=== PATIENT | male | born 1975 | race Caucasian/White ===

== ENCOUNTER 2024-02-25 16:16 | Emergency (ER) | payer OTHER, SELFPAY ==
--- NOTE | 2024-02-25 16:26 | ED.URI ---
HPI - URI/Sore Throat General Chief Complaint: Upper Respiratory Infection Stated Complaint: + COVID Time Seen by Provider: 02/25/24 16:34 Source: patient, RN notes reviewed and old records reviewed Mode of arrival: ambulatory Limitations: no limitations History of Present Illness HPI Narrative: Patient presents with complaints of body aches and runny nose that he began to notice yesterday. Tested positive for COVID-19 this morning. He is concerned about need for [place] [facility]. He is immunocompromised due to treatment for ulcerative colitis. He denies any shortness of breath, denies any fever. Related Data Home Medications Medication Instructions Recorded Confirmed adalimumab-atto 40 mg/0.8 mL 40 mg subcut DIRECTED 02/25/24 02/25/24 subcutaneous auto-injector (Amjevita(CF) Autoinjector) fluoxetine 10 mg capsule 10 mg DIRECTED 02/25/24 02/25/24 tramadol 50 mg tablet 50 mg DIRECTED 02/25/24 02/25/24 Allergies Allergy/AdvReac Type Severity Reaction Status Date / Time acetaminophen Allergy Mild Rash Verified 02/25/24 16:36 [From Tylenol-Codeine #3] codeine Allergy Mild Rash Verified 02/25/24 16:36 [From Tylenol-Codeine #3] NSAIDS (Non-Steroidal AdvReac Intermediate Other Verified 02/25/24 16:36 Anti-Inflamma Review of Systems Review of Systems: All systems reviewed & are unremarkable except as noted in HPI and below Constitutional: Constitutional: Reports no additional constitutional complaints, Reports lethargy and Reports malaise ENT: Reports system reviewed and no additional complaints, except as documented, Reports nasal discharge and Reports sore throat Cardiovascular: Cardiovascular: Reports no additional cardiovascular complaints Respiratory: Respiratory: Reports no additional respiratory complaints, Reports cough and Denies dyspnea Gastrointestinal: Gastrointestinal: Reports no additional gastrointestinal complaints PMFSH Comments At the time of my signature, I reviewed and agree with the nursing past medical, surgical, social, and family history. There is no relevant family history pertinent to the patient complaint. Exam Const: General: cooperative, no acute distress, alert and awake Orientation/consciousness: oriented to person, oriented to place and oriented to time HENMT: Head: normal to inspection Resp: Effort & Inspection: normal respiratory effort and able to speak in complete sentences Auscultation: clear to auscultation bilaterally, no crackles, no rales, no rhonchi and no wheezes Cardio: Palpation: normal PMI Rate: regular rate Rhythm: regular rhythm Heart sounds: S1 normal heart sound present and S2 normal heart sound present Neuro: General: oriented to person, oriented to place and oriented to time Cranial nerves: Yes CN's II-XII intact bilaterally Psych: Appearance: grossly normal Thought process: Normal thought process present Insight: Good insight present (Psych) Judgement: Good judgement present (Psych) Course Course Level of Care: Express Care Visit Vital Signs Vital signs: Reviewed MDM - URI/Sore Throat MDM Narrative Medical decision making narrative: Patient with grossly unremarkable exam. No distress. Given his immunocompromised status, will prescribed Paxil visit. He was advised of risks and benefits. Emergency department with any new or worsening symptoms. Follow up with primary care provider. Call GI doctor to inquire as to when injection should be given in light of infectious illness Differential Diagnosis Differential diagnosis: Likely upper respiratory infection, otitis media, sinusitis, viral infection, influenza and pharyngitis Medical Records Attestation: I reviewed the patient's medical records. Discharge Plan Discharge Clinical Impression: COVID-19 Patient Disposition: Home, Self-Care Condition: Stable Instructions: COVID-19 (Coronavirus Disease 2019) (ED), How to Recover from COVID-19 at Home (ED) Sahil
[2024-02-25 16:28] VITALS: BP 107/83; PULSE 81; RESP 16; TEMP 37.2; O2SAT 99
== END 2024-02-25 16:50 | disposition home or self-care (01) ==
PROVIDERS: Emergency Provider Nurse Practitioner Family
DX: U07.1 COVID-19 (principal); F41.9 Anxiety disorder, unspecified; F32.A Depression, unspecified
CPT/HCPCS: 99213; G0463